=== PATIENT | female | born 1955 | race Caucasian/White ===

== ENCOUNTER 2017-10-07 06:47 | Day surgery (SDC) | payer OTHER ==
[~2017-10-07] VITALS: Ht 157.5 cm; Wt 56.8 kg
[~2017-10-07 06:47] MED LIST: ASPIR 8181 M1 PO; CALCIUM + D3 E1 EACH PO; CALCIUM 500-VI1 EACH PO; CELEBREX200 MG PO; DAILY VITAMIN1 EAC5 PO; FLONASE ALLERG9.9 ML BOTH NARES; LEXAPRO20 MG PO; LYRICA75 MG PO; PREMPRO 0.31 TABLET PO; SYNTHROID75 MCG PO; WELLBUTRIN XL300 MG PO; ZYRTEC5 MG PO
[2017-10-07 07:49] VITALS: BP 121/58
[2017-10-07 09:50] VITALS: BP 126/57
[2017-10-07 10:33] VITALS: BP 120/56
== END 2017-10-07 10:43 | disposition home or self-care (01) ==
LOC: SDC 06:47
DX: H43.392 Other vitreous opacities, left eye (principal); E03.9 Hypothyroidism, unspecified; K21.9 Gastro-esophageal reflux disease without esophagitis
CPT/HCPCS: J0690; J0713; J3010